=== PATIENT | female | born 1960 | race Two or more races ===

== ENCOUNTER 2023-12-26 14:47 | Outpatient (RCR) | payer MEDICAID, SELFPAY | END 2023-12-31 23:59 | disposition home or self-care (01) | LOC: CPTX 14:47 | PROVIDERS: PCP Surgery; Referring Provider Surgery; Visit Provider Surgery | DX: Z53.8 Procedure and treatment not carried out for other reasons (principal) ==

== ENCOUNTER → 2025-03-15 | Outpatient (CLI) | payer MEDICAID, SELFPAY ==
--- NOTE | 2025-03-15 08:00 | XR_ITS ---
Examination: Screening digital mammography, bilateral Computer aided detection 3-D breast Tomosynthesis, bilateral Date and time of exam: 25, 8:11 a.m. Comparisons: 03/12/2024 Indications: Screening Technique: Nonmagnified MLO, CC views of the breasts to been obtained, reconstructed from 3-D Tomosynthesis images. R2 computer aided detection program utilized for evaluation of suspicious masses and/or abnormal calcifications. 3-D Tomosynthesis images obtained. Technologist: Findings: There are scattered areas of fibroglandular density. No evidence of abnormal masses or suspicious calcifications. Impression: BI-RADS category 1: Negative findings (within normal) Recommend 1 year follow-up mammogram
== END | disposition home or self-care (01) ==
LOC: CDIM 08:00
PROVIDERS: PCP Registered Nurse Community Health; Referring Provider Registered Nurse Community Health; Visit Provider Registered Nurse Community Health
DX: Z12.31 Encounter for screening mammogram for malignant neoplasm of breast (principal); R92.313 Mammographic fatty tissue density, bilateral breasts
CPT/HCPCS: 77063; 77067